=== PATIENT | male | born 1975 | race Caucasian/White ===

== ENCOUNTER → 2020-08-23 | Outpatient (CLI) | payer OTHER | LOC: RAD 11:30 | DX: M25.511 Pain in right shoulder (principal); M19.011 Primary osteoarthritis, right shoulder | CPT/HCPCS: 73030 ==

== ENCOUNTER → 2020-08-28 | Outpatient (CLI) | payer OTHER | LOC: MRI 13:08 | DX: R29.898 Other symptoms and signs involving the musculoskeletal system (principal); Z53.9 Procedure and treatment not carried out, unspecified reason ==